=== PATIENT | male | born 1990 | race African-American/Black ===

== ENCOUNTER 2020-02-12 04:21 | Emergency (ER) | payer SELFPAY ==
[~2020-02-12] VITALS: Ht 182.9 cm; Wt 72.6 kg
[2020-02-12 04:31] VITALS: BP 123/99
--- NOTE | 2020-02-12 04:34 | NUR ---
ED Nurse Note: BROUGHT IN BY PETRONA VASQUEZ 67 AND [employer] FOR AMS. PER EMS, PT WAS FOUND ON THE STREET NAKED AND BECAME ANXIOUS WITH [employer]. PER PT'S FRIEND PT MAY HAVE TAKEN PCP. PT IS LETHARGIC AT TRIAGE AND ASLEEP AT BEDSIDE. HR OF 133 ERMD AWARE. 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
--- NOTE | 2020-02-12 04:35 | NUR ---
ED Nurse Note: BLOOD AND URINE COLLECTED AND SENT TO LAB
--- NOTE | 2020-02-12 04:36 | Emergency Room Report ---
History of Present Illness General Chief Complaint: Overdose Source: EMS Present Illness HPI This is an approximately 29-year-old -[place] male who was came in as a Cesar Kaleb. He presents with chief complaint of altered mental status. He was screaming in the street asking for help. When police came he was acting erratically and they called EMS. EMS gave him 5 of Versed and now he is completely out and sleepy. Unable to get any history from this patient. No trauma. Allergies: Coded Allergies: UNABLE TO ASSESS (Unverified , 02/12/20) Patient is lethargic, not answering questions at this time. 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 Patient History Past Medical History: see triage record, old chart reviewed, unable to obtain Past Surgical History: unable to obtain Pertinent Family History: unable to obtain Immunizations: other Reviewed Nursing Documentation: PMH: Agreed; PSxH: Agreed Nursing Documentation-PMH Past Medical History: Deferred Review of Systems All Other Systems: limited - Unable to obtain any history secondary to intoxication Physical Exam Vital Signs Date Time Temp Pulse Resp B/P (MAP) Pulse Ox O2 Delivery O2 Flow Rate FiO2 02/12/20 04:25 97.9 139 20 132/99 (110) 99 Room Air 02/12/20 04:31 99 Sp02 EP Interpretation: reviewed, normal General Appearance: well appearing, no apparent distress, other - Sleeping, snoring Head: normocephalic, atraumatic Eyes: bilateral eye PERRL - Pinpoint pupils, bilateral eye EOMI ENT: hearing grossly normal, normal pharynx Neck: full range of motion, supple, no meningismus Respiratory: chest non-tender, lungs clear, normal breath sounds Cardiovascular #1: regular rate, rhythm, no murmur Gastrointestinal: normal bowel sounds, non tender, no mass, no organomegaly, no bruit, non-distended Musculoskeletal: back normal, normal range of motion Neurologic: no focal defects Medical Decision Making Diagnostic Impression: Primary Impression: Substance abuse ER Course Patient presents with acute agitation secondary to substance abuse. Now he is sleeping after receiving Versed. Labs unremarkable. No evidence of any trauma to his head. Will observe until clinical sobriety. Last Vital Signs Date Time Temp Pulse Resp B/P (MAP) Pulse Ox O2 Delivery O2 Flow Rate FiO2 02/12/20 04:31 133 20 Room Air 99 02/12/20 04:31 98.2 123/99 99 Status: improved Disposition: HOME, SELF-CARE Condition: Stable Referrals: NOT CHOSEN IPA/,REFERRING (PCP) Additional Instructions: Abstain from drugs and alcohol. Go to rehab. Follow-up with in 7 days. Return if worse. You Do MD Feb 12, 2020 04:36
[2020-02-12 04:42] LABS: EOSINOPHILS % (AUTO) 5.4 % (0.0-3.0); HEMATOCRIT 40.7 % (42.0-52.0); HEMOGLOBIN 13.4 G/DL (14.2-18.0); LYMPHOCYTES % (AUTO) 40.8 % (20.0-45.0); MEAN CORPUSCULAR VOLUME 88 FL (80-99); MONOCYTES % (AUTO) 9.8 % (1.0-10.0); NEUTROPHILS % (AUTO) 42.1 % (45.0-75.0); PLATELET COUNT 276 K/UL (150-450); RED CELL DISTRIBUTION WIDTH 11.7 % (11.6-14.8); WHITE BLOOD COUNT 5.1 K/UL (4.8-10.8)
[2020-02-12 04:43] LABS: APPEARANCE,URINE CLEAR; BILIRUBIN, URINE NEGATIVE (NEGATIVE); COLOR,URINE YELLOW; GLUCOSE, URINE (UA) NEGATIVE (NEGATIVE); KETONES,URINE NEGATIVE (NEGATIVE); LEUKOCYTE ESTERASE ,URINE NEGATIVE (NEGATIVE); NITRITE,URINE NEGATIVE (NEGATIVE); PH,URINE 5 (4.5-8.0); PROTEIN,URINE 3+ (NEGATIVE); UROBILINOGEN,URINE 1 MG/DL (0.0-1.0)
[2020-02-12] MEDS ORDERED: Naloxone 1mg/ml 2ml IVP ONE (04:45)
[2020-02-12 04:51] LABS: BLOOD UREA NITROGEN 23 mg/dL (7-18); CALCIUM 9.8 MG/DL (8.5-10.1); CARBON DIOXIDE 27 MMOL/L (21-32); CHLORIDE 104 MMOL/L (98-107); CREATININE 1.4 MG/DL (0.55-1.30); POTASSIUM 3.4 MMOL/L (3.5-5.1); SODIUM 142 MMOL/L (136-145)
[2020-02-12 06:26] VITALS: BP 119/82
--- NOTE | 2020-02-12 06:58 | NUR ---
HAND-OFF: Report given to sincere benson.
--- NOTE | 2020-02-12 07:00 | NUR ---
ED Nurse Note: Received report from Abdiaziz SEGAL. Patient in bed, obtunded, does not open eyes to voice. Responsive to light pain. VSS, no s/s of acute distress. Breathing even and unlabored.
[2020-02-12 07:05] VITALS: BP 122/75
[2020-02-12 11:18] VITALS: BP 128/71
--- NOTE | 2020-02-12 11:18 | NUR ---
ED Nurse Note: Pt cleared by ERMD for discharge. DC instructions was given and explained to pt and verbalized understanding of teachings. All medical deviecs such as ID band and IV line removed. Pt is AAO x4, ambulatory and left with all personal belongings. Snacks provided. Pt will take the bus going home.
== END 2020-02-12 11:18 | disposition home or self-care (01) ==
LOC: EDBD 04:21 → EMR 04:30
DX: F15.10 Other stimulant abuse, uncomplicated (principal); F12.10 Cannabis abuse, uncomplicated; F16.10 Hallucinogen abuse, uncomplicated
CPT/HCPCS: 36415; 80048; 80307; 81001; 85025; 96374; 99284; G0480; J2310